=== PATIENT | female | born 1980 | race Two or more races ===

== ENCOUNTER → 2017-07-06 | Outpatient (CLI) | payer OTHER ==
--- NOTE | ~2017-07-06 | CR184 ---
[facility] A Service of [facility] & [facility] RADIOLOGY TEXT RESULTS PATIENT: JAMESON HERNANDEZ LOCATION: [facility] : 84 UNIT #: [id number] AGE: [address]: Carolyn Jackson MD SEX: F ORDER DR: [id number] [facility] [address] [place], [place] [address] [id number] O MR#: [id number] Acc #: [id number] NAME: JAMESON HERNANDEZ : 1980 SEX: F STUDY DATE/TIME: 07/06/2017 10:12 UNIT: [facility] ROOM: STUDY DESCRIPTION: CR Lumbar Spine Min 4 Views Attending Physician: Carolyn Jackson M.D. Referring Physician: Carolyn Jackson M.D. Ordering Physician: Carolyn Jackson M.D. Primary Care Physician: Carolyn Jackson M.D. MEDICAL IMAGING REPORT This report is preliminary unless electronic signature is present EXAM Lumbar spine 5 views, 07/06/2017 HISTORY Low back pain radiating into both upper thighs for 1 month. Bilateral lower extremity radiculopathy. No known injury. FINDINGS AP and lateral projections of the lumbar segment show good mineralization of both anterior and posterior elements. They are all anatomically normal without indication of fracture, dislocation, or malignant change of a sclerotic or lytic type. There is no congenital defect noted. The sacroiliac joints are normal. IMPRESSION Normal lumbar spine. Dictated by... Evgeny Norman M.D. THIS IS AN ELECTRONICALLY VERIFIED REPORT Evgeny Norman M.D. at 07/11/2017 12:01 PM KRT/martin TD: 07/06/2017 19:43 JOB #: [id number] MEDICAL IMAGING REPORT Page 1 of 1 COPY
== END | disposition home or self-care (01) ==
LOC: CRAD 09:52
DX: M54.5 Low back pain (principal); R63.4 Abnormal weight loss; G89.29 Other chronic pain
CPT/HCPCS: 72110